=== PATIENT | female | born 2000 | race Caucasian/White ===

== ENCOUNTER 2022-04-12 04:04 | Emergency (ER) | payer SELFPAY ==
[~2022-04-12] VITALS: Ht 165.1 cm; Wt 66.0 kg
[~2022-04-12 04:04] MED LIST: CLONIDINE; DEXM20CP PO; DEXMETHYLPHENIDATE; DIVALPROEX; QUETIAPINE PO; TRAZODONE; [UNRECOGNIZED DRUG - CODE]; [UNRECOGNIZED DRUG - OTHER] PO
[2022-04-12 04:06] VITALS: BP 111/72
[2022-04-12] MEDS ORDERED: LACTATED RINGERS 1,000 ML IV ONE (04:15)
[2022-04-12 04:48] LABS: BILIRUBIN,URINE NEGATIVE (NEGATIVE); CLARITY,URINE CLEAR; COLOR,URINE YELLOW; GLUCOSE, URINE (UA) NEGATIVE (NEGATIVE); KETONES,URINE NEGATIVE (NEGATIVE); LEUKOCYTE ESTERASE ,URINE 1+ (NEGATIVE); NITRITE,URINE NEGATIVE (NEGATIVE); PH,URINE 5.5 (5-9); PROTEIN,URINE 1+ (NEGATIVE)
[2022-04-12 04:49] LABS: BACTERIA,URINE MODERATE /HPF
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
[2022-04-12 04:53] LABS: AMPHETAMINE SCREEN, URINE POSITIVE (NEGATIVE); BARBITURATE SCREEN URINE NEGATIVE (NEGATIVE); BENZODIAZEPINES SCREEN URINE NEGATIVE (NEGATIVE); CANNABINOID SCREEN, URINE NEGATIVE (NEGATIVE); COCAINE SCREEN URINE NEGATIVE (NEGATIVE); METHADONE STAT NEGATIVE (NEGATIVE); OPIATE SCREEN URINE NEGATIVE (NEGATIVE); OXYCODONE STAT NEGATIVE (NEGATIVE); PROPOXYPHENE STAT NEGATIVE (NEGATIVE); TRICYCLIC ANTIDEPRESSANTS SCRE POSITIVE (NEGATIVE)
== END 2022-04-12 04:56 | disposition left against medical advice (07) ==
LOC: EDUNIT# 04:04 → ER 04:08
DX: R07.9 Chest pain, unspecified (principal); R06.02 Shortness of breath; R42 Dizziness and giddiness; Z28.310 Unvaccinated for COVID-19
CPT/HCPCS: 80306; 81000; 87088; 93005

== ENCOUNTER 2022-07-02 00:12 | Emergency (ER) | payer SELFPAY ==
[~2022-07-02] VITALS: Ht 162 cm; Wt 145.0 kg
[2022-07-02 01:01] LABS: BASOPHILS # (AUTO) 0.1 10^3/uL (0.0-0.1); BASOPHILS % (AUTO) 1 % (0-10); EOSINOPHILS # (AUTO) 0.1 10^3/uL (0.0-0.3); EOSINOPHILS % (AUTO) 1 % (0-10); HEMATOCRIT 40 % (35-52); HEMOGLOBIN 13.7 g/dL (11.5-16.0); LYMPHOCYTES # (AUTO) 2.8 10^3/uL (1.0-4.0); LYMPHOCYTES % (AUTO) 33 % (12-44); MEAN CORPUSCULAR HEMOGLOBIN 29 pg (25-34); MEAN CORPUSCULAR HGB CONC 34 g/dL (32-36); MEAN CORPUSCULAR VOLUME 86 fL (80-99); MEAN PLATELET VOLUME 10.6 fL (9.0-12.2); MONOCYTES # (AUTO) 0.5 10^3/uL (0.0-1.0); MONOCYTES % (AUTO) 6 % (0-12); NEUTROPHILS # (AUTO) 4.9 10^3/uL (1.8-7.8); NEUTROPHILS % (AUTO) 59 % (42-75); PLATELET COUNT 255 10^3/uL (130-400); WHITE BLOOD COUNT 8.4 10^3/uL (4.3-11.0)
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
[2022-07-02 01:07] LABS: ALANINE AMINOTRANSFERASE 13 U/L (0-55); ALBUMIN 4.6 GM/DL (3.2-4.5); ALKALINE PHOSPHATASE 55 U/L (40-136); BILIRUBIN,TOTAL 0.4 MG/DL (0.1-1.0); BUN/CREATININE RATIO 15; CALCIUM 10.1 MG/DL (8.5-10.1); CARBON DIOXIDE 18 MMOL/L (21-32); CHLORIDE 109 MMOL/L (98-107); CREATININE SERUM 1.03 MG/DL (0.60-1.30); GFR ESTIMATED 79; GLUCOSE 115 MG/DL (70-105); POTASSIUM 3.6 MMOL/L (3.6-5.0); SODIUM 141 MMOL/L (135-145); TOTAL PROTEIN 7.6 GM/DL (6.4-8.2)
[2022-07-02 01:09] LABS: ACETAMINOPHEN < 10 UG/ML (10-30); SALICYLATE < 5.0 MG/DL (5.0-20.0)
[2022-07-02 01:15] LABS: CLARITY,URINE CLEAR; COLOR,URINE YELLOW; GLUCOSE, URINE (UA) NEGATIVE (NEGATIVE); KETONES,URINE 1+ (NEGATIVE); LEUKOCYTE ESTERASE ,URINE 1+ (NEGATIVE); NITRITE,URINE NEGATIVE (NEGATIVE); PROTEIN,URINE 1+ (NEGATIVE)
[2022-07-02 01:31] LABS: BACTERIA,URINE FEW /HPF; RBC,URINE RARE /HPF
[2022-07-02 01:39] LABS: AMPHETAMINE SCREEN, URINE POSITIVE (NEGATIVE); BARBITURATE SCREEN URINE NEGATIVE (NEGATIVE); BENZODIAZEPINES SCREEN URINE NEGATIVE (NEGATIVE); CANNABINOID SCREEN, URINE POSITIVE (NEGATIVE); COCAINE SCREEN URINE NEGATIVE (NEGATIVE); METHADONE STAT NEGATIVE (NEGATIVE); OPIATE SCREEN URINE NEGATIVE (NEGATIVE); OXYCODONE STAT NEGATIVE (NEGATIVE); PROPOXYPHENE STAT NEGATIVE (NEGATIVE); TRICYCLIC ANTIDEPRESSANTS SCRE NEGATIVE (NEGATIVE)
[2022-07-02] MEDS ORDERED: NITR-65 PO (01:41)
[2022-07-02] MEDS ORDERED: RX-NITROFURANTOIN 100 MG (MACROBID) CAP PPK#2 PO STA (01:42)
[2022-07-02 02:10] VITALS: BP 91/50
[2022-07-02 03:50] LABS: BILIRUBIN,URINE 1+ (NEGATIVE)
== END 2022-07-02 02:17 | disposition home or self-care (01) ==
LOC: EDUNIT# 00:12 → ER 00:13
DX: F91.9 Conduct disorder, unspecified (principal); F44.9 Dissociative and conversion disorder, unspecified; N39.0 Urinary tract infection, site not specified; F19.10 Other psychoactive substance abuse, uncomplicated; F17.290 Nicotine dependence, other tobacco product, uncomplicated; Z28.310 Unvaccinated for COVID-19
CPT/HCPCS: 80053; 80164; 80306; 81000; 84703; 85025; 93041; 99284; G0480 ×3; 36415; 80320; 80329

== ENCOUNTER 2022-08-02 22:10 | Emergency (ER) | payer SELFPAY ==
[~2022-08-02] VITALS: Ht 154 cm; Wt 58.9 kg
[~2022-08-02 22:10] MED LIST changes: +NITR-65 PO
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
[2022-08-02 22:57] LABS: BASOPHILS % (AUTO) 1 % (0-10); EOSINOPHILS # (AUTO) 0.2 10^3/uL (0.0-0.3); EOSINOPHILS % (AUTO) 2 % (0-10); HEMATOCRIT 40 % (35-52); HEMOGLOBIN 13.8 g/dL (11.5-16.0); LYMPHOCYTES # (AUTO) 2.9 10^3/uL (1.0-4.0); LYMPHOCYTES % (AUTO) 35 % (12-44); MEAN CORPUSCULAR HEMOGLOBIN 29 pg (25-34); MEAN CORPUSCULAR HGB CONC 35 g/dL (32-36); MEAN CORPUSCULAR VOLUME 85 fL (80-99); MEAN PLATELET VOLUME 10.7 fL (9.0-12.2); MONOCYTES # (AUTO) 0.5 10^3/uL (0.0-1.0); MONOCYTES % (AUTO) 6 % (0-12); NEUTROPHILS # (AUTO) 4.7 10^3/uL (1.8-7.8); NEUTROPHILS % (AUTO) 57 % (42-75); PLATELET COUNT 263 10^3/uL (130-400); WHITE BLOOD COUNT 8.2 10^3/uL (4.3-11.0)
[2022-08-02 23:11] LABS: AMPHETAMINE SCREEN, URINE NEGATIVE (NEGATIVE); BARBITURATE SCREEN URINE NEGATIVE (NEGATIVE); BENZODIAZEPINES SCREEN URINE NEGATIVE (NEGATIVE); CANNABINOID SCREEN, URINE POSITIVE (NEGATIVE); COCAINE SCREEN URINE NEGATIVE (NEGATIVE); METHADONE STAT NEGATIVE (NEGATIVE); OPIATE SCREEN URINE NEGATIVE (NEGATIVE); OXYCODONE STAT NEGATIVE (NEGATIVE); PROPOXYPHENE STAT NEGATIVE (NEGATIVE); TRICYCLIC ANTIDEPRESSANTS SCRE NEGATIVE (NEGATIVE)
[2022-08-02 23:34] VITALS: BP 128/72
--- NOTE | 2022-08-03 07:11 | Diagnostic Imaging Report ---
EXAM: CHEST 1 VIEW, AP/PA ONLY INDICATION: Wheezing. COMPARISON: None. FINDINGS: Normal heart size and central pulmonary vascularity. Lungs are clear. No pleural effusion or pneumothorax. No acute osseous findings. IMPRESSION: No acute cardiopulmonary findings. Agree with the ED preliminary interpretation. Dictated by: Dictated on workstation # [id number]
== END 2022-08-02 23:34 | disposition home or self-care (01) ==
LOC: ER 22:10 → EDUNIT# 22:10 → ER 23:34
DX: R06.02 Shortness of breath (principal); F91.9 Conduct disorder, unspecified; F12.90 Cannabis use, unspecified, uncomplicated; F19.10 Other psychoactive substance abuse, uncomplicated; F17.290 Nicotine dependence, other tobacco product, uncomplicated; Z79.51 Long term (current) use of inhaled steroids; Z87.09 Personal history of other diseases of the respiratory system; Z28.310 Unvaccinated for COVID-19
CPT/HCPCS: 36415; 71045; 80048; 80164; 80306; 80320; 84703; 85025

== ENCOUNTER 2022-08-06 01:41 | Emergency (ER) | payer SELFPAY ==
[~2022-08-06] VITALS: Ht 155 cm; Wt 61.2 kg
[2022-08-06 01:43] VITALS: BP 115/70
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
[2022-08-06] MEDS ORDERED: IBUPROFEN TABLET 200 MG TAB PO ONE (02:00)
== END 2022-08-06 02:05 | disposition home or self-care (01) ==
LOC: EDUNIT# 01:41 → ER 01:42
DX: S80.212A Abrasion, left knee, initial encounter (principal); H92.01 Otalgia, right ear; F17.290 Nicotine dependence, other tobacco product, uncomplicated; Z28.310 Unvaccinated for COVID-19; W17.89XA Other fall from one level to another, initial encounter
CPT/HCPCS: 99283

== ENCOUNTER 2022-08-08 21:08 | Emergency (ER) | payer SELFPAY ==
[~2022-08-08] VITALS: Ht 155 cm; Wt 61.5 kg
[2022-08-08 21:18] VITALS: BP 116/71
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
== END 2022-08-08 21:29 | disposition home or self-care (01) ==
LOC: EDUNIT# 21:08 → ER 21:12
DX: M25.562 Pain in left knee (principal); Z28.310 Unvaccinated for COVID-19
CPT/HCPCS: 99281

== ENCOUNTER 2022-08-19 19:55 | Emergency (ER) | payer SELFPAY ==
[~2022-08-19] VITALS: Ht 155 cm; Wt 68.0 kg
[2022-08-19 20:12] LABS: BASOPHILS % (AUTO) 0 % (0-10); EOSINOPHILS # (AUTO) 0.1 10^3/uL (0.0-0.3); EOSINOPHILS % (AUTO) 1 % (0-10); HEMATOCRIT 40 % (35-52); HEMOGLOBIN 13.3 g/dL (11.5-16.0); LYMPHOCYTES # (AUTO) 4.8 10^3/uL (1.0-4.0); LYMPHOCYTES % (AUTO) 51 % (12-44); MEAN CORPUSCULAR HEMOGLOBIN 28 pg (25-34); MEAN CORPUSCULAR HGB CONC 34 g/dL (32-36); MEAN CORPUSCULAR VOLUME 85 fL (80-99); MEAN PLATELET VOLUME 9.8 fL (9.0-12.2); MONOCYTES # (AUTO) 0.6 10^3/uL (0.0-1.0); MONOCYTES % (AUTO) 6 % (0-12); NEUTROPHILS # (AUTO) 3.9 10^3/uL (1.8-7.8); NEUTROPHILS % (AUTO) 41 % (42-75); PLATELET COUNT 298 10^3/uL (130-400); WHITE BLOOD COUNT 9.4 10^3/uL (4.3-11.0)
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
[2022-08-19 20:36] LABS: ALANINE AMINOTRANSFERASE 32 U/L (0-55); ALBUMIN 4.8 GM/DL (3.2-4.5); ALKALINE PHOSPHATASE 69 U/L (40-136); BILIRUBIN,TOTAL 0.5 MG/DL (0.1-1.0); BUN/CREATININE RATIO 14; CALCIUM 10.3 MG/DL (8.5-10.1); CARBON DIOXIDE 21 MMOL/L (21-32); CHLORIDE 109 MMOL/L (98-107); CREATINE KINASE 171 U/L (29-168); CREATININE SERUM 1.01 MG/DL (0.60-1.30); GFR ESTIMATED 81; GLUCOSE 98 MG/DL (70-105); MAGNESIUM 2.4 MG/DL (1.6-2.4); POTASSIUM 3.4 MMOL/L (3.6-5.0); SODIUM 141 MMOL/L (135-145); TOTAL PROTEIN 8.1 GM/DL (6.4-8.2)
[2022-08-19 20:37] LABS: ACETAMINOPHEN < 10 UG/ML (10-30)
[2022-08-19 20:38] LABS: CLARITY,URINE SL CLOUDY; COLOR,URINE DARK YELLOW; GLUCOSE, URINE (UA) NEGATIVE (NEGATIVE); KETONES,URINE TRACE (NEGATIVE); LEUKOCYTE ESTERASE ,URINE TRACE (NEGATIVE); NITRITE,URINE NEGATIVE (NEGATIVE); PROTEIN,URINE TRACE (NEGATIVE)
[2022-08-19 20:43] LABS: CREATINE KINASE MB 1.2 NG/ML (<6.6)
[2022-08-19 20:48] LABS: BILIRUBIN,URINE 1+ (NEGATIVE)
[2022-08-19 20:50] LABS: AMORPHOUS SEDIMENT,UR LARGE AMOR URATES /LPF; BACTERIA,URINE MODERATE /HPF; RBC,URINE 0-2 /HPF; SQUAMOUS EPITHELIAL CELL,UR 25-50 /HPF
[2022-08-19 20:57] LABS: AMPHETAMINE SCREEN, URINE POSITIVE (NEGATIVE); BENZODIAZEPINES SCREEN URINE NEGATIVE (NEGATIVE); CANNABINOID SCREEN, URINE POSITIVE (NEGATIVE); COCAINE SCREEN URINE NEGATIVE (NEGATIVE); OPIATE SCREEN URINE NEGATIVE (NEGATIVE)
[2022-08-19 20:58] LABS: BARBITURATE SCREEN URINE NEGATIVE (NEGATIVE); METHADONE STAT NEGATIVE (NEGATIVE); OXYCODONE STAT NEGATIVE (NEGATIVE); PROPOXYPHENE STAT NEGATIVE (NEGATIVE); TRICYCLIC ANTIDEPRESSANTS SCRE NEGATIVE (NEGATIVE)
[2022-08-19 21:13] VITALS: BP 126/70
== END 2022-08-19 21:13 | disposition home or self-care (01) ==
LOC: EDUNIT# 19:55 → ER 19:55
DX: F91.9 Conduct disorder, unspecified (principal); F12.90 Cannabis use, unspecified, uncomplicated; F17.290 Nicotine dependence, other tobacco product, uncomplicated; Z28.310 Unvaccinated for COVID-19
CPT/HCPCS: 80053; 80164; 80306; 81000; 82550; 82553; 83735; 83874; 84703; 85025; 93041; G0480 ×2; 36415; 80320; 80329

== ENCOUNTER 2022-08-24 21:05 | Emergency (ER) | payer SELFPAY | END 2022-08-24 21:53 | disposition left against medical advice (07) | LOC: EDUNIT# 21:05 → ER 21:06 | DX: E86.0 Dehydration (principal) ==

== ENCOUNTER 2022-08-28 18:41 | Emergency (ER) | payer SELFPAY ==
--- NOTE | 2022-08-28 18:57 | ED General ---
General Chief Complaint: Respiratory Problems Stated Complaint: ASTHMA ATTACK Nursing Triage Note: PT TO RM 5 BY WC WITH C\\O ASTHMA ATTACK STARTING APPROX 30 MIN AGO. 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 Patient is very anxious and presents with difficulty breathing. She initially had some upper airway sounds consistent with vocal cord tension. She appeared to be hyperventilating. She quickly calmed with coaching and the upper airway sounds resolved. No wheezing or stridor was appreciated. Vital signs are stable with oxygen saturation in the upper 90s. Patient states she has both problems with asthma and anxiety, and it is sometimes difficult to differentiate between the two conditions. She requests something to help with the anxiety. Allergies and Home Medications Allergies Coded Allergies: codeine (Verified Allergy, Unknown, 08/18/13) Patient Home Medication List Home Medication List Reviewed: Yes Dexmethylphenidate Hcl (Focalin Xr) 20 Mg Cpmp.50.50, 20 MG PO DAILY, (Reported) Entered as Reported by: SAGRARIO LYNN on 08/18/132131 Nitrofurantoin Monohyd/M-Cryst (Macrobid 100 mg Capsule) 100 Mg Capsule, 1 TAB PO BID Prescribed by: LILI NAGY on 07/02/22 0141 [Clonidine] , BID, (Reported) Entered as Reported by: SAGRARIO LYNN on 08/18/132131 [Dexmeth] , (Reported) Entered as Reported by: SAGRARIO LYNN on 08/18/132131 [Dexmethylphenidate] , DAILY, (Reported) Entered as Reported by: SAGRARIO LYNN on 08/18/132131 [Divalproex] , HS, (Reported) Entered as Reported by: SAGRARIO LYNN on 08/18/132131 [Intuni] , PO DAILY, (Reported) Entered as Reported by: SAGRARIO LYNN on 08/18/132131 [Quetiapine] , PO BID, (Reported) Entered as Reported by: SAGRARIO LYNN on 08/18/132131 [Trazodone] , HS, (Reported) Entered as Reported by: SAGRARIO LYNN on 08/18/132131 Review of Systems Review of Systems Constitutional: no symptoms reported EENTM: no symptoms reported Respiratory: see HPI Cardiovascular: no symptoms reported Gastrointestinal: no symptoms reported Genitourinary: no symptoms reported : No Musculoskeletal: no symptoms reported Skin: no symptoms reported Psychiatric/Neurological: See HPI Hematologic/Lymphatic: No Symptoms Reported Immunological/Allergic: no symptoms reported Past Cpxfqon-Ggllnn-Nmjwxg Hx Patient Social History Tobacco Use?: No Substance use?: No Alcohol Use?: No Pt feels they are or have been: No Immunizations Up To Date First/Initial COVID19 Vaccinat: N/A Second COVID19 Vaccination Sunny: N/A Third COVID19 Vaccination Date: N/A Past Medical History Surgery/Hospitalization HX: SEIZURE DISORDER, AUTISM, PSYCH, ASTHMA Surgeries: No Respiratory: Yes Asthma Cardiac: No Neurological: Yes Developmental Disorder, Seizure Disorder Last Menstrual Period: Aug 14, 2022 Reproductive Disorders: Yes (PT STATES SHE HAS NEVER HAD A PERIOD IN HER LIFE. ) Sexually Transmitted Disease: No Genitourinary: No Gastrointestinal: No Musculoskeletal: No Endocrine: No HEENT: No Cancer: No Psychosocial: Yes (M.R. 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 SHE HAS BEEN IN [facility] C[facility]/STATE CUSTODY SINCE SHE WAS A YOUNG CHILD. SHE HAD BEEN LIVING IN [place] FOR SEVERAL YEARS, IN STATE [facility]UST[facility], AND WHEN SHE TURNED 22, SHE WAS RELEASED FROM STATE CUSTODY AND SHE MOVED HERE TO LIVE WITH HER GRANDMOTHER THE DAY SHE TURNED 22. Physical Exam Vital Signs Vital Signs - First Documented 08/28/22 18:45 Temp 37.0 Pulse 110 Resp 30 B/P (MAP) 131/77 (95) Pulse Ox 99 O2 Delivery Room Air Capillary Refill : Height, Weight, BMI Height: 4'6" Weight: 100lbs. oz. 45.056726mj; 28.00 BMI Method:Stated General Appearance: WD/WN, Mild Distress HEENT: Normal ENT Inspection, Other (Upper airway sounds initially consistent with vocal cord tension which resolved with coaching) Neck: Normal Inspection Respiratory: Lungs Clear, Normal Breath Sounds, No Accessory Muscle Use Cardiovascular: Regular Rate, Rhythm, No Edema, No Murmur Gastrointestinal: No Distended Extremity: Normal Inspection, No Pedal Edema Neurologic/Psychiatric: Alert, Oriented x3, Other (Poor eye contact, anxious) Skin: Normal Color, Warm/Dry Progress/Results/Core Measures Suspected Sepsis SIRS Temperature: Pulse: 110 Respiratory Rate: 30 Blood Pressure 131 /77 Mean: 95 Results/Orders Lab Results Laboratory Tests Test 08/28/22 18:45 Range/Units Serum Test, Qualitative NEGATIVE NEGATIVE My Orders Orders - CHAY SABILLON MD Hydroxyzine Cap/Tab (Vistaril) (08/28/22 19:00) Hcg,Qualitative Serum (08/28/22 18:51) Medications Given in ED Current Medications Medications Dose Ordered Sig/Jamal Route Start Time Stop Time Status Last Admin Dose Admin Hydroxyzine Pamoate 25 mg ONCE ONCE PO 08/28/22 19:00 08/28/22 19:01 DC 08/28/22 19:40 25 MG Vital Signs/I&O 08/28/22 18:45 Temp 37.0 Pulse 110 Resp 30 B/P (MAP) 131/77 (95) Pulse Ox 99 O2 Delivery Room Air Capillary Refill : Blood Pressure Mean: 95 Progress Note #1: Time: 18:59 Progress Note Patient was interviewed and examined. Her friend was also interviewed. She seemed to respond very well to coaching and had an unremarkable exam and stable vital signs. She requested something for anxiety, and hydroxyzine was ordered. We will allow her to rest and calm down. She will be discharged if stable on reevaluation. Progress Note #2: Time: 20:01 Progress Note Patient has been stable and calm. She is requesting discharge and has family here to get her. See discharge instructions for further discussion. The only lab obtained was a serum test, and it was negative. Departure Impression Primary Impression: Anxiety Additional Impression: Acute stress reaction Disposition: 01 HOME, SELF-CARE Condition: Improved Departure-Patient Inst. Decision time for Depature: 19:00 Referrals: [facility] (PCP/Family) Primary Care Physician Patient Instructions: Asthma, Adult ED, Hyperventilation, Panic Attack ED Copy Copies To 1: [facility]/CHAY RAHMAN MD Aug 28, 2022 18:57
[2022-08-28] MEDS ORDERED: hydrOXYzine (VISTARIL/ATARAX) 25 MG capsule/tablet PO ONE (19:00)
[2022-08-28 20:06] VITALS: BP 100/73
== END 2022-08-28 20:08 | disposition home or self-care (01) ==
LOC: EDUNIT# 18:41 → ER 18:42
DX: F41.9 Anxiety disorder, unspecified (principal); F43.0 Acute stress reaction; Z28.310 Unvaccinated for COVID-19
CPT/HCPCS: 36415; 84703; 99283

== ENCOUNTER 2022-09-20 13:52 | Emergency (ER) | payer SELFPAY ==
[~2022-09-20] VITALS: Ht 160 cm; Wt 68.0 kg
[2022-09-20] MEDS ORDERED: KETOROLAC 30 MG/ML VIAL IM ONE (14:00)
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
--- NOTE | 2022-09-20 14:37 | Diagnostic Imaging Report ---
PROCEDURE: CT thoracic and lumbar spine without contrast. TECHNIQUE: Multiple contiguous axial images were obtained through the thoracic and lumbar spine without the use of intravenous contrast. Sagittal and coronal reformations were then performed. All CT scans use one or more of the following dose optimizing techniques: automated exposure control, MA and/or KvP adjustment based on a patient size and exam type, or iterative reconstruction. INDICATION: Back pain. COMPARISON: None. FINDINGS: Normal alignment of the thoracic and lumbar spine. Normal disc spaces. Normal facets. No lytic or sclerotic bone lesion. No acute fracture or dislocation. Included views of the soft tissues demonstrates no significant abnormality. IMPRESSION: No acute fracture or dislocation of the thoracic or lumbar spine. Dictated by: Dictated on workstation # [id number]
--- NOTE | 2022-09-20 14:38 | Diagnostic Imaging Report ---
EXAMINATION: Left ankle radiograph. TECHNIQUE: AP, oblique, and lateral view of the left ankle obtained. HISTORY: lateral ankle pain COMPARISON: None available. FINDINGS: Alignment is normal. No fracture is seen. Joint spaces are normal. IMPRESSION: 1. No fracture. Dictated by: Dictated on workstation # [id number]
--- NOTE | 2022-09-20 14:40 | Diagnostic Imaging Report ---
CHEST 1 VIEW, AP/PA ONLY INDICATION: Chest pain, left posterior rib pain. COMPARISON: Chest radiograph 07/25/2022. FINDINGS: Lungs: Normal lung volume. No focal consolidation. Stable pulmonary vasculature. Pleura: No pleural effusion or pneumothorax. Heart and Mediastinum: Cardiomediastinal silhouette and great vessels of the thorax are stable. Osseous Structures and Soft Tissues: No acute osseous abnormality. Normal soft tissues. IMPRESSION: No acute chest findings. Dictated by: Dictated on workstation # [id number]
[2022-09-20] MEDS ORDERED: IBUP-1773 PO (14:44)
[2022-09-20 14:57] VITALS: BP 103/67
== END 2022-09-20 15:00 | disposition home or self-care (01) ==
LOC: EDUNIT# 13:52 → ER 13:53
DX: M54.50 Low back pain, unspecified (principal); M25.572 Pain in left ankle and joints of left foot; S50.312A Abrasion of left elbow, initial encounter; S50.311A Abrasion of right elbow, initial encounter; M54.6 Pain in thoracic spine; M25.472 Effusion, left ankle; R07.81 Pleurodynia; W17.89XA Other fall from one level to another, initial encounter; W22.8XXA Striking against or struck by other objects, initial encounter
CPT/HCPCS: 71045; 72128; 72131; 73610

== ENCOUNTER 2022-10-15 00:08 | Emergency (ER) | payer SELFPAY ==
[~2022-10-15] VITALS: Ht 165.1 cm; Wt 63.5 kg
[~2022-10-15 00:08] MED LIST changes: +IBUP-1773 PO
[2022-10-15 00:11] VITALS: BP 130/73
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
[2022-10-15] MEDS ORDERED: LIDOCAINE 4% PATCH TOP STA (00:34)
== END 2022-10-15 00:45 | disposition home or self-care (01) ==
LOC: EDUNIT# 00:08 → ER 00:10
DX: M62.838 Other muscle spasm (principal); M54.2 Cervicalgia
CPT/HCPCS: 99281

== ENCOUNTER → 2022-10-27 | Emergency (ER) | payer SELFPAY ==
[~2022-10-27] VITALS: Ht 167 cm; Wt 65.7 kg
[2022-10-27 00:45] VITALS: BP 96/70
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
== END ==
LOC: EDUNIT# 00:35 → ER 00:36
DX: F43.0 Acute stress reaction (principal); Z28.310 Unvaccinated for COVID-19
CPT/HCPCS: 99283

== ENCOUNTER 2022-11-23 21:22 | Emergency (ER) | payer SELFPAY ==
[~2022-11-23] VITALS: Ht 165.1 cm; Wt 65.7 kg
--- NOTE | 2022-11-23 21:32 | ED Fall/Injury ---
General Stated Complaint: FALL Source: patient, EMS Exam Limitations: other (patient is metally) History of Present Illness Date Seen by Provider: Nov 23, 2022 Time Seen by Provider: 21:20 Initial Comments Patient is a 22-year-old female who presents to the emergency room by EMS chief complaint neck pain, right wrist pain, multiple bruises and abrasions. Patient was running across a field, the police attempted to have her stop when she tripped over a metal bar and went face down in the field. No loss of consciousness reported. Had immediate pain to the right wrist. Placed in a cervical collar by EMS. She is crying on arrival. Complains of pain "everywhere". Has a history of intellectual disability. Denies feeling short of breath. Denies nausea. States she got a Depo shot yesterday. Occurred: just prior to arrival Severity: moderate Injuries/Pain Location: face, neck, upper extremity (Right wrist), lower extre mity (Bilateral knees) Context: tripped Loss of Consciousness: no loss of consciousness Modifying Factors: Improves With Immobilization; Worse With Movement Associated Symptoms (Fall): Denies Symptoms Allergies and Home Medications Allergies Coded Allergies: codeine (Verified Allergy, Unknown, 08/18/13) Patient Home Medication List Home Medication List Reviewed: Yes Ibuprofen (Ibuprofen) 600 Mg Tablet, 600 MG PO Q8H Prescribed by: JOANNA RUSHING on 09/20/22 8414 Review of Systems Review of Systems Constitutional: see HPI Eyes: No Symptoms Reported Ears, Nose, Mouth, Throat: no symptoms reported Respiratory: no symptoms reported Cardiovascular: no symptoms reported Gastrointestinal: no symptoms reported Genitourinary: no symptoms reported Musculoskeletal: joint pain (Right wrist, bilateral knees), neck pain Skin: other (Abrasions) Psychiatric/Neurological: See HPI All Other Systems Reviewed Negative Unless Noted: Yes Past Uabnrcf-Zeonrs-Dnzrqv Hx Immunizations Up To Date First/Initial COVID19 Vaccinat: N/A Second COVID19 Vaccination Sunny: N/A Third COVID19 Vaccination Date: N/A Past Medical History Surgery/Hospitalization HX: SEIZURE DISORDER, AUTISM, PSYCH, ASTHMA Surgeries: No Respiratory: Yes Asthma Cardiac: No Neurological: Yes Developmental Disorder, Seizure Disorder Reproductive Disorders: Yes (PT STATES SHE HAS NEVER HAD A PERIOD IN HER LIFE. ) Sexually Transmitted Disease: No Genitourinary: No Gastrointestinal: No Musculoskeletal: No Endocrine: No HEENT: No Cancer: No Psychosocial: Yes (M.R. 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 SHE HAS BEEN IN FOSTER CARE/STATE CUSTODY SINCE SHE WAS A YOUNG CHILD. SHE HAD BEEN LIVING IN [place] FOR SEVERAL YEARS, IN STATE CUSTODY, AND WHEN SHE TURNED 22, SHE WAS RELEASED FROM STATE CUSTODY AND SHE MOVED HERE TO LIVE WITH HER GRANDMOTHER THE DAY SHE TURNED 22. Physical Exam Vital Signs Vital Signs - First Documented 11/23/22 21:30 Temp 36.6 Pulse 92 Resp 16 B/P (MAP) 127/85 (99) Pulse Ox 99 O2 Delivery Room Air Capillary Refill : Height, Weight, BMI Height: 4'6" Weight: 100lbs. oz. 45.966175aw; 23.00 BMI Method:Stated General Appearance: WD/WN, mild distress, thin HEENT: PERRL/EOMI, TMs normal, pharynx normal Neck: normal inspection, other (Patient endorses tenderness throughout the entire cervical spine. She is very agitated, intellectual disability, degree of agitation seems to be out of proportion to exam; cervical collar in place) Cardiovascular: regular rate, rhythm Respiratory: chest non-tender, lungs clear, normal breath sounds, no respiratory distress, no accessory muscle use Peripheral Pulses: 2+ Radial Pulses (R), 2+ Radial Pulses (L) Gastrointestinal: non tender, soft Extremities: other (Tenderness to palpation over the bones of the wrist. No swelling. No abrasions to the forearm, wrist or hands of the right upper extremity. Elbow mildly tender to palpation but intact normal range of motion, shoulder mildly tender to palpation but intact normal range of motion) Neurologic/Psychiatric: no motor/sensory deficits, alert, normal mood/affect, oriented x 3 Skin: normal color, warm/dry, other (Abrasions noted to the left anterior superior iliac crest, bilateral knee abrasions, small abrasion to the left upper forehead) Ho Ho Kus Coma Score Best Eye Response: (4) Open Spontaneously Best Verbal Response: (5) Oriented Best Motor Response: (6) Obeys Commands Progress/Results/Core Measures Results/Orders My Orders Orders - TAYO DEL VALLE MD Ct Cervical Spine Wo (11/23/22 21:34) Wrist, Right, 2 Views (11/23/22 21:34) Dipht/Pertuss(Acell)/Tet Adult (Dipht/Pe (11/23/22 21:45) Ketorolac Injection (Ketorolac Injection (11/23/22 21:45) Medications Given in ED Current Medications Medications Dose Ordered Sig/Jamal Route Start Time Stop Time Status Last Admin Dose Admin Diphtheria/ Tetanus/Acell Pertussis 0.5 ml ONCE ONCE IM 11/23/22 21:45 11/23/22 21:46 DC 11/23/22 22:47 0.5 ML Ketorolac Tromethamine 15 mg ONCE ONCE IM 11/23/22 21:45 11/23/22 21:46 DC 11/23/22 22:46 15 MG Vital Signs/I&O 11/23/22 21:30 Temp 36.6 Pulse 92 Resp 16 B/P (MAP) 127/85 (99) Pulse Ox 99 O2 Delivery Room Air Progress Progress Note : Time: 23:16 Progress Note Patient seen and evaluated by me. Evaluation today includes physical exam, 2 views of the right wrist, CT cervical spine. Pertinent physical exam findings well-developed well-nourished thin anxious female. Crying. She has small abrasion to the forehead, HEENT exam is otherwise unremarkable. Diffuse cervical spine pain in the midline. Neck exam is normal, chest nontender lungs are clear, heart is regular abdomen is soft and nondistended. She has abrasions to the bilateral lower extremities across both knees. Knee joints are stable. Intact dorsiflexion of the bilateral feet. Normal sensation in the lower extremities. Left upper extremity exam is normal, right upper extremity reflex tenderness throughout the entire upper extremity mostly localized to the right wrist. Distal neurovascularly intact with 2+ radial pulses bilaterally. Fingertips pink warm and dry. Patient states "numbness" to the fingers of the right hand although responds to pain. Differential diagnosis cervical spine fracture versus strain, right wrist fracture versus sprain, abrasions of multiple sites X-rays independently reviewed and interpreted by me. She has what appears to be an impacted distal right radius fracture that is not distracted. Her CT cervical spine was read by radiology as no acute fractures or dislocations. Patient's tetanus shot is updated in the emergency department she is given 30 mg of Toradol IM for pain. She will be given tramadol for home. Referral information for orthopedics on-call, placed in a Velcro wrist splint. She is given instructions on wound care. Return precautions provided in both verbal and written format. All questions are sought and answered. Patient is stable for discharge Diagnostic Imaging Diagonstic Imaging: CT Comments [facility], [place] NAME: TAMIKO ROCHA [facility] REC#: [id number] PT STATUS: REG ER : 2000 PHYSICIAN: TAYO DEL VALLE MD ADMIT DATE: 11/23/22/ER Signed Date of Exam:11/23/22 CT CERVICAL SPINE WO PROCEDURE: CT cervical spine without contrast. TECHNIQUE: Multiple contiguous axial images were obtained through the cervical spine without the use of intravenous contrast. Sagittal and coronal reformations were then performed. Auto Exposure Controls were utilized during the CT exam to meet ALARA standards for radiation dose reduction. INDICATION: Fall. Back pain. COMPARISON: None. FINDINGS: No acute fracture or dislocation in the cervical spine. Alignment is anatomic. No focal osseous lesions. No high density material is seen within the spinal canal. The soft tissues of the neck are normal. The included lungs are clear. IMPRESSION: 1. No acute fracture or dislocation in the cervical spine. Dictated by: Dictated on workstation # [id number] Dict: 11/23/222148 Trans: 11/23/222151 [facility] [id number] Interpreted by: ARIANNE JONES DO Electronically signed by: ARIANNE JONES DO 11/23/222151 Diagonstic Imaging: Xray Comments 2 views of the right wrist independently reviewed and interpreted by me, question impacted fracture of the distal radius. No dislocation or displacement Departure Impression Primary Impression: Distal radius fracture, right Qualified Codes: S52.591A - Other fractures of lower end of right radius, initial encounter for closed fracture Additional Impressions: Abrasions of multiple sites Cervical strain, acute Qualified Codes: S16.1XXA - Strain of muscle, fascia and tendon at neck level, initial encounter Disposition: 01 HOME, SELF-CARE Condition: Stable Departure-Patient Inst. Decision time for Depature: 23:20 Referrals: [facility] [place]) Primary Care Physician COLE GUTIERREZ MD Patient Instructions: Forearm and Wrist Fractures ED, Abrasions ED Add. Discharge Instructions: Wash the skin wounds, abrasions with a mild soap and water. Apply some triple antibiotic ointment twice a day for 2 to 3 days and keep them covered. After 2 to 3 days they can be left open to air. Please keep the splint on your right wrist until you follow-up with an orthopedic doctor. I have given you contact information for Dr. Gutierrez. You need to call his office tomorrow to make a follow-up appointment in a week. Put an ice pack on your wrist for 20 minutes at a time 4 times a day over the next 2 days. Keep the wrist elevated to keep the swelling down. You can take [id number] ibuprofen, 3 tablets which is 600 mg every 6 hours with food as needed for pain. I have also given you some tramadol 50 mg tablets 1 every 6 hours as needed for more severe pain. If you have any new, concerning or emergent complaints please come back to the emergency room for reevaluation. Scripts Tramadol HCl (Tramadol HCl) 50 Mg Tablet 50 MG PO Q6H PRN for PAIN, #8 TAB 0 Refills Prov: TAYO DEL VALLE MD 11/23/22 Copy Copies To 1: LEXY CABALLERO DO Copies To 2: COLE GUTIERREZ MD, KATHRYN M MD Nov 23, 2022 21:32
[2022-11-23] MEDS ORDERED: Tetanus/Diphtheria/Pertussis (Acell) ADULT Vaccine 0.5 ML IM ONE (21:45)
[2022-11-23] MEDS ORDERED: KETOROLAC INJ 15 MG/ML VIAL IM ONE (21:45)
--- NOTE | 2022-11-23 21:52 | Diagnostic Imaging Report ---
PROCEDURE: CT cervical spine without contrast. TECHNIQUE: Multiple contiguous axial images were obtained through the cervical spine without the use of intravenous contrast. Sagittal and coronal reformations were then performed. Auto Exposure Controls were utilized during the CT exam to meet ALARA standards for radiation dose reduction. INDICATION: Fall. Back pain. COMPARISON: None. FINDINGS: No acute fracture or dislocation in the cervical spine. Alignment is anatomic. No focal osseous lesions. No high density material is seen within the spinal canal. The soft tissues of the neck are normal. The included lungs are clear. IMPRESSION: 1. No acute fracture or dislocation in the cervical spine. Dictated by: Dictated on workstation # [id number]
[2022-11-23] MEDS ORDERED: TRM50T PO (23:23)
[2022-11-23 23:39] VITALS: BP 121/74
--- NOTE | 2022-11-24 08:01 | Diagnostic Imaging Report ---
INDICATION: right wrist pain; fall TECHNIQUE: 2 views of the right wrist CORRELATION STUDY: None FINDINGS: The osseous structures of the wrist have an unremarkable appearance. Alignment is anatomic. There is no acute bony abnormality. The visualized soft tissues appearing unremarkable. IMPRESSION: 1. Negative examination of the wrist. Dictated by: Dictated on workstation # [id number]
== END 2022-11-23 23:39 | disposition home or self-care (01) ==
LOC: EDUNIT# 21:22 → ER 21:23
DX: S52.501A Unspecified fracture of the lower end of right radius, initial encounter for closed fracture (principal); S16.1XXA Strain of muscle, fascia and tendon at neck level, initial encounter; S80.212A Abrasion, left knee, initial encounter; S80.211A Abrasion, right knee, initial encounter; S00.81XA Abrasion of other part of head, initial encounter; S70.212A Abrasion, left hip, initial encounter; F79 Unspecified intellectual disabilities; Z28.310 Unvaccinated for COVID-19; Z23 Encounter for immunization; W01.198A Fall on same level from slipping, tripping and stumbling with subsequent striking against other object, initial encounter; Y93.02 Activity, running; Y92.89 Other specified places as the place of occurrence of the external cause
CPT/HCPCS: 72125; 73100; 90715

== ENCOUNTER 2022-12-29 21:53 | Emergency (ER) | payer SELFPAY ==
[~2022-12-29] VITALS: Ht 154.9 cm; Wt 61.6 kg
[~2022-12-29 21:53] MED LIST changes: +TRM50T PO
[2022-12-29] MEDS ORDERED: LIDOCAINE 4% PATCH TOP STA (22:39)
--- NOTE | 2022-12-29 22:42 | ED General ---
General Chief Complaint: Upper Extremity Stated Complaint: FALL/RIGHT SHOULDER/ARM PAIN Nursing Triage Note: PT AMB TO FT3 WITH CC OF R SHOULDER PAIN. PT STATES FELL OFF BED. DENIES OTHER INJURY. Source of Information: Patient Exam Limitations: No Limitations (PARISA KUMAR) History of Present Illness Date Seen by Provider: Dec 29, 2022 Time Seen by Provider: 22:25 Initial Comments This is a 22 yo female that presents with right shoulder pain after "falling out of bed and hitting arm against dresser" prior to arrival. Pt states pain is located on posterior scapular spine and radiates down to elbow. Pain is sharp and movement worsens pain. 200mg ibuprofen was tried without relief. (PARISA KUMAR) Allergies and Home Medications Allergies Coded Allergies: codeine (Verified Allergy, Unknown, 08/18/13) Patient Home Medication List Home Medication List Reviewed: Yes (TAYO DEL VALLE MD) Ibuprofen (Ibuprofen) 600 Mg Tablet, 600 MG PO Q8H Prescribed by: JOANNA RUSHING on 09/20/22 1444 Tramadol HCl (Tramadol HCl) 50 Mg Tablet, 50 MG PO Q6H PRN for PAIN Prescribed by: TAYO DEL VALLE on 11/23/22 2323 Review of Systems Review of Systems Constitutional: No dizziness, No fever EENTM: no symptoms reported Respiratory: no symptoms reported Cardiovascular: no symptoms reported Gastrointestinal: no symptoms reported Genitourinary: no symptoms reported Musculoskeletal: no symptoms reported Skin: no symptoms reported Psychiatric/Neurological: No Symptoms Reported (PARISA KUMAR) Past Upvtchf-Jgvqkr-Hjcoxw Hx Patient Social History Tobacco Use?: No Substance use?: No Alcohol Use?: No (PARISA KUMAR) Immunizations Up To Date First/Initial COVID19 Vaccinat: 2020 Second COVID19 Vaccination Sunny: 2020 Third COVID19 Vaccination Date: 2021 (PARISA KUMAR) Past Medical History Surgery/Hospitalization HX: SEIZURE DISORDER, AUTISM, PSYCH, ASTHMA Surgeries: No Respiratory: Yes Asthma Cardiac: No Neurological: Yes Developmental Disorder, Seizure Disorder Reproductive Disorders: Yes (PT STATES SHE HAS NEVER HAD A PERIOD IN HER LIFE. ) Sexually Transmitted Disease: No Genitourinary: No Gastrointestinal: No Musculoskeletal: No Endocrine: No HEENT: No Cancer: No Psychosocial: Yes (M.R. 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 SHE HAS BEEN IN FOSTER CARE/STATE CUSTODY SINCE SHE WAS A YOUNG CHILD. SHE HAD BEEN LIVING IN [place] FOR SEVERAL YEARS, IN STATE CUSTODY, AND WHEN SHE TURNED 22, SHE WAS RELEASED FROM STATE CUSTODY AND SHE MOVED HERE TO LIVE WITH HER GRANDMOTHER THE DAY SHE TURNED 22. (PARISA KUMAR) Physical Exam Vital Signs Vital Signs - First Documented 12/29/22 22:01 Temp 36.6 Pulse 83 Resp 16 B/P (MAP) 119/76 (90) Pulse Ox 98 (TAYO DEL VALLE MD) Vital Signs Capillary Refill : Less Than 3 Seconds (PARISA KUMAR) Height, Weight, BMI Height: 4'6" Weight: 100lbs. oz. 45.982964gz; 25.00 BMI Method:Stated General Appearance: WD/WN, Moderate Distress Neck: Full Range of Motion, Non Tender, Supple Respiratory: Chest Non Tender, Normal Breath Sounds, No Accessory Muscle Use, No Respiratory Distress Cardiovascular: Regular Rate, Rhythm, No Edema, No Murmur, Normal Peripheral Pulses (radialis pulse 2+ b/l) Extremity: Normal Capillary Refill, Normal Range of Motion, Other (Swelling, scrapes, and tenderness noted on right scapular spine region. Sensation to light touch C6-C8 b/l. ) Neurologic/Psychiatric: Alert, Oriented x3, No Motor/Sensory Deficits Skin: Normal Color, Warm/Dry (PARISA KUMAR) Extremity: Other (Swelling, scrapes, and tenderness noted on right scapular spine region. Sensation to light touch C6-C8 b/l. ) (TAYO DEL VALLE MD) Progress/Results/Core Measures Suspected Sepsis SIRS Temperature: Pulse: 83 Respiratory Rate: 16 Blood Pressure 119 /76 Mean: 90 (PARISA KUMAR) Results/Orders My Orders Orders - TAYO DEL VALLE MD Lidocaine 4% Patch (Salonpas 4% Patch) (12/29/22 22:39) (TAYO DEL VALLE MD) Vital Signs/I&O 12/29/22 12/29/22 22:01 22:59 Temp 36.6 Pulse 83 83 Resp 16 16 B/P (MAP) 119/76 (90) 119/76 Pulse Ox 98 98 (TAYO DEL VALLE MD) Vital Signs/I&O Capillary Refill : Less Than 3 Seconds (STACYPARISA BEY) Blood Pressure Mean: 90 Progress Note : Time: 22:45 Progress Note I have reviewed the medical student's documentation and agree. My findings and plan of care are as follows. Patient seen and evaluated by me. Evaluation today includes physical exam. Per tinent physical exam findings include - WDWN female, mentally challenged, holding her right arm with her left. Patient has tenderness to palpation over the right scapula - obvious contusion with some very superficial abrasions to the skin. Her right shoulder joint itself is nontender. I can perform passive ROM of the right shoulder - no crepitance, clicks or pops. She is NVI to the RUE. No other complaints of injury. Appears to be at her normal mental baseline ddx includes - contusion, concern for unstable home environment Patient is given a lidocaine patch for the area. She is advised to alternate heat and ice. Tylenol and Ibuprofen. COnsideration for xrays, however, physical examination does not support the need. Return precautions provided. (TAYO DEL VALLE MD) Departure Impression Primary Impression: Shoulder contusion Qualified Codes: S40.011A - Contusion of right shoulder, initial encounter Disposition: 01 HOME, SELF-CARE Condition: Stable Departure-Patient Inst. Decision time for Depature: 22:50 (TAYO DEL VALLE MD) Referrals: [facility] (PCP/Family) Primary Care Physician Patient Instructions: Minor Contusion ED Add. Discharge Instructions: Ice pack to the sore area of your right shoulder, 20 minutes at a time throughout the day tomorrow. You can take 2-3 tablets of Ibuprofen, always with food, every 6 hours as needed for pain. Lidocaine patches, as well as Biofreeze or IcyHot can help with the contused and sore muscles. Return to the Emergency Department for any new, concerning or emergent complaints. Please follow up with your primary care provider. Verification and Attestation of Medical Student E/M Service A medical student performed and documented this service in my presence. I reviewed and verified all information documented by the medical student and made modifications to such information, when appropriate. I personally performed the physical exam and medical decision making. Tayo Del Valle, Dec 30, 2022,01:36 (TAYO DEL VALLE MD) Copy Copies To 1: LEXY CABALLERO ETHAN Dec 29, 2022 22:42 TAYO DEL VALLE MD Dec 29, 2022 22:52
[2022-12-29 22:59] VITALS: BP 119/76
== END 2022-12-29 22:59 | disposition home or self-care (01) ==
LOC: EDUNIT# 21:53 → ER 21:55
DX: S40.011A Contusion of right shoulder, initial encounter (principal); W06.XXXA Fall from bed, initial encounter; W22.8XXA Striking against or struck by other objects, initial encounter
CPT/HCPCS: 99281